=== PATIENT | female | born 1950 | race Caucasian/White ===

== ENCOUNTER → 2016-12-06 | Outpatient (CLI) | payer OTHER, MEDICARE | LOC: BMCIMAGING 10:21 | DX: Z12.31 Encounter for screening mammogram for malignant neoplasm of breast (principal); Z85.3 Personal history of malignant neoplasm of breast | CPT/HCPCS: G0202 ==

== ENCOUNTER 2017-03-21 18:08 | Emergency (ER) | payer OTHER, MEDICARE ==
--- NOTE | 2017-03-21 19:21 | EDPHY ---
H & P Time Seen by Provider: 03/21/17 18:31 HPI/ROS: This patient is accompanied by her friend who drove room by private vehicle for with ankle injury to the left ankle that occurred less than 2 hours prior to arrival. She explains that she was walking her dog looking across the street and stepped on a rock that was in the sidewalk causing her to inverted her left ankle. She heard a pop and immediate lateral pain to the lateral malleolus, but did not fall over. She is able to catch herself. Since that time she reports 3/10 ache at baseline that is worse with weight-bearing. She can still weight bear weight on the ankle but the pain increases to moderate intensity with weight-bearing. She notes associated swelling and mild ecchymosis to the lateral malleolus since the injury. ROS: Constitutional: She felt well prior to the injury Musculoskeletal: No other injuries. No foot pain. Neuro: No numbness or tingling the affected extremity Cardiovascular: No pallor or calf swelling to the affected extremity Integumentary: No skin rash or lacerations. 5 point ROS is otherwise negative. Past Medical/Surgical History: Prior left ankle fracture -lateral malleolus 4 years ago that took 11 months to heal but did eventually heal to full functional status per patient. Smoking Status: Former smoker Physical Exam: Physical Exam Vital signs are normal. General: No acute distress HEENT: Atraumatic Eyes: Pupils equal and react to light. Extraocular motions are intact. Lungs: No respiratory distress. Cardiac: Brisk capillary refill is intact throughout. Pulses are 2+ and symmetric in the affected extremity. Skin: No rash or pallor. No lacerations or abrasions. Extremities: Atraumatic normal except for left ankle Left ankle: Patient has moderate swelling tenderness and ecchymosis to the lateral malleolus. No medial tenderness, Achilles tenderness or foot tenderness or swelling. No calf swelling or tenderness. No lateral leg tenderness superior to the malleolus Neuro: Alert with no sensorimotor deficits in the affected ankle. Initial differential diagnosis: Sprain, traumatic hematoma, fracture Constitutional: Initial Vital Signs Temperature (C) 36.6 C 03/21/17 18:18 Heart Rate 94 03/21/17 18:18 Respiratory Rate 18 03/21/17 18:18 Blood Pressure 137/89 H 03/21/17 18:18 O2 Sat (%) 97 03/21/17 18:18 O2 Delivery Mode Room Air Allergies/Adverse Reactions: Penicillins Allergy (Intermediate, Verified 02/10/13 11:45) Rash tetracycline [Tetracycline] Allergy (Mild, Verified 02/10/13 11:45) Home Medications: Medication Instructions Recorded Aspirin [Aspirin 81mg] 81 mg PO DAILY 03/13/11 Levothyroxine [Levothroid, 88 mcg PO DAILY@1000 03/13/11 Synthroid] Levothyroxine [Synthroid 75 mcg 02/10/13 (RX)] Modafinil [Provigil 200 mg] 02/10/13 metFORMIN HCL [Glucophage 500 mg 02/10/13 (*)] MDM/Departure - MDM Diagnostics: Ankle x-ray: Three views-distal fibula-malleolus fracture nondisplaced by my interpretation Imaging Results: Imaging Impressions Ankle X-Ray 03/21/17 18:32 Impression: 1. Nondisplaced transverse fracture distal left fibula with adjacent moderate soft tissue swelling. Imaging: I viewed and interpreted images myself ED Course/Re-evaluation: Patient is placed in a walker boot by our tech. I counseled her regarding her fracture. The patient declined analgesics while here explaining that she would take her own Advil for her symptoms. Discussion: Uncomplicated lateral malleolus fracture warranting follow up with Orthopedics but does not appear to be a surgical fracture. - Depart Disposition: Home, Routine, Self-Care Clinical Impression: Fracture of distal fibula Qualifiers: Encounter type: initial encounter Fracture type: closed Fracture morphology: unspecified fracture morphology Laterality: left Qualified Code(s): S82.832A - Other fracture of upper and lower end of left fibula, initial encounter for closed fracture Condition: Good Instructions: Ankle Fracture (ED) Additional Instructions: Diagnosis: Ankle fracture Plan: Wear the splint when your up and about. You can remove it for bathing or at night. Crutches with touchdown weight-bearing as tolerated. Follow up with the precision agriculture specialist for further evaluation sometime the next 3-7 days Ibuprofen and/or Tylenol for pain if needed. Ice for swelling 20 minutes at a time 3 times a day for the next few days. Elevate the the ankle when able. Referrals: Louie Almendarez MD [Medical Doctor] - As per Instructions
[2017-03-21 20:08] VITALS: BP 134/95; PULSE 83; RESP 16; TEMP 97.7; O2SAT 96
== END 2017-03-21 20:07 | disposition home or self-care (01) ==
LOC: CED 18:08
DX: S82.832A Other fracture of upper and lower end of left fibula, initial encounter for closed fracture (principal); Z79.82 Long term (current) use of aspirin; Z79.84 Long term (current) use of oral hypoglycemic drugs; Z87.891 Personal history of nicotine dependence; W22.09XA Striking against other stationary object, initial encounter; Y92.480 Sidewalk as the place of occurrence of the external cause; Y99.8 Other external cause status; Y93.01 Activity, walking, marching and hiking
CPT/HCPCS: 73610; 99283; L4386

== ENCOUNTER → 2017-04-16 | Outpatient (CLI) | payer OTHER, MEDICARE | LOC: CIMAGING 10:42 | PROVIDERS: ATTEND Podiatrist Foot & Ankle Surgery | DX: S82.65XD Nondisplaced fracture of lateral malleolus of left fibula, subsequent encounter for closed fracture with routine healing (principal) | CPT/HCPCS: 73610-PO ==

== ENCOUNTER → 2017-04-27 | Outpatient (CLI) | payer OTHER, MEDICARE | LOC: CIMAGING 13:31 | PROVIDERS: ATTEND Podiatrist Foot & Ankle Surgery | DX: S89.392D Other physeal fracture of lower end of left fibula, subsequent encounter for fracture with routine healing (principal) | CPT/HCPCS: 73610-PO ==

== ENCOUNTER → 2017-05-25 | Outpatient (CLI) | payer OTHER, MEDICARE | LOC: CIMAGING 09:43 | PROVIDERS: ATTEND Podiatrist Foot & Ankle Surgery | DX: S82.831D Other fracture of upper and lower end of right fibula, subsequent encounter for closed fracture with routine healing (principal) | CPT/HCPCS: 73610-PO ==

== ENCOUNTER → 2017-06-15 | Outpatient (CLI) | payer OTHER, MEDICARE | LOC: CIMAGING 11:50 | PROVIDERS: ATTEND Podiatrist Foot & Ankle Surgery | DX: S82.64XD Nondisplaced fracture of lateral malleolus of right fibula, subsequent encounter for closed fracture with routine healing (principal) | CPT/HCPCS: 73610-PO ==

== ENCOUNTER → 2017-07-14 | Outpatient (CLI) | payer OTHER, MEDICARE | LOC: BMCIMAGING 11-26 16:06 | PROVIDERS: ATTEND Podiatrist Foot & Ankle Surgery | DX: S82.62XA Displaced fracture of lateral malleolus of left fibula, initial encounter for closed fracture (principal) | CPT/HCPCS: 73610-PO ==

== ENCOUNTER → 2017-08-23 | Outpatient (CLI) | payer OTHER, MEDICARE | LOC: BRMIMAGING 13:48 | PROVIDERS: ATTEND Internal Medicine | DX: E04.1 Nontoxic single thyroid nodule (principal) ==

== ENCOUNTER → 2017-12-08 | Outpatient (CLI) | payer OTHER, MEDICARE | LOC: BMCIMAGING 11:57 | PROVIDERS: ATTEND Internal Medicine | DX: Z12.31 Encounter for screening mammogram for malignant neoplasm of breast (principal); Z85.3 Personal history of malignant neoplasm of breast ==

== ENCOUNTER 2018-02-11 21:37 | Emergency (ER) | payer OTHER, MEDICARE ==
[2018-02-11] MEDS ORDERED: ONDANSETRON DISINTEGRATING 4 MG TAB PO ONE (22:16)
[2018-02-11] MEDS ORDERED: MECLIZINE HCL 25 MG TAB PO ONE (22:17)
--- NOTE | 2018-02-11 22:35 | EDPHY ---
H & P Time Seen by Provider: 02/11/18 21:41 HPI/ROS: This patient presents with vertigo. She explains that last night she turned her head to the left while lying down and abruptly had onset of room spinning. Her symptoms persisted today worse with movement particularly bending forward associated at times with nausea and vomiting. She has mild nausea currently and reports that the vertigo resolved at times but tends to recur with head movements. The symptoms are similar to an episode of ago she suffered 2 years ago. She had a normal head CT at that time. She underwent maneuvers- presumably Otis and had some improvement thereafter. She felt well prior to the onset of the vertigo. Her friend brought her in by private vehicle for further evaluation of the symptoms tonight. ROS: Constitutional: No recent fevers. She does complain of fatigue over the past couple days. HEENT: The patient reports mild left ear pressure intermittently today but no change in hearing and no tinnitus. She reports mild jaw pain bilaterally in the TMJ zone that she attributes to jaw clenching. She wears a bite guard at night. Pulmonary: No dyspnea or cough currently. Cardiovascular: No chest pain or heart palpitations. GI: No abdominal pain. No hematemesis. No diarrhea. Neuro: No headache. No focal numbness tingling or weakness. No visual changes. 7 point ROS is otherwise negative. Past Medical/Surgical History: Patient recently had a normal treadmill stress test in October and a normal echocardiogram. 1 prior history of benign positional vertigo Smoking Status: Former smoker Physical Exam: Physical exam: Vital signs are normal General: Patient is in no acute distress. HEENT: Is no external evidence of trauma on exam. Nose atraumatic. Ears: Clear bilaterally with no cerumen impaction, otitis media or other abnormalities appreciated. Oropharynx: No dental trauma or malocclusion. No intraoral lacerations. Eyes: Pupils are equal and reactive to light. Extraocular motions are intact. Neck: Nontender and supple Lungs: Clear to auscultation bilaterally Cardiac: Regular rate and rhythm no murmur gallop or rub. Abdomen: Soft nontender no organomegaly Neuro: GCS of 15. Cranial nerves II through XII intact. Cerebellar exam is normal as judged by normal rapid finger to nose bilaterally. No sensory or motor deficits are appreciated. The Ash[place]-Hallpike maneuver elicits fast twitch nystagmus toward the L. when performed on the left Initial differential diagnosis: Benign paroxysmal positional vertigo, anxiety, doubt central vertigo given lack of findings suggestive of that diagnoses., Meniere's disease, tumor Constitutional: Initial Vital Signs Temperature (C) 36.6 C 02/11/18 21:52 Heart Rate 87 02/11/18 21:52 Respiratory Rate 18 02/11/18 21:52 Blood Pressure 131/96 H 02/11/18 21:52 O2 Sat (%) 96 02/11/18 21:52 O2 Delivery Mode Room Air Allergies/Adverse Reactions: Penicillins Allergy (Intermediate, Verified 02/11/18 21:56) Rash tetracycline [Tetracycline] Allergy (Mild, Verified 02/11/18 21:56) Home Medications: Medication Instructions Recorded Aspirin [Aspirin 81mg] 81 mg PO DAILY 03/13/11 Levothyroxine [Synthroid 75 mcg 02/10/13 (RX)] Modafinil [Provigil 200 mg] 02/10/13 Meclizine HCl [Meclizine HCl 25 mg 25 mg PO BID PRN #20 tab 02/11/18 (RX,OTC)] Ondansetron Odt [Zofran Odt] 4 - 8 mg PO Q4PRN PRN #4 tab 02/11/18 MDM/Departure - MDM Medications Given: Discontinued Medications Meclizine HCl (Meclizine Hcl) 25 mg PO EDNOW ONE Stop: 02/11/18 22:18 Last Admin: 02/11/18 22:20 Dose: 25 mg Ondansetron HCl (Zofran Odt) 8 mg PO EDNOW ONE Stop: 02/11/18 22:17 Last Admin: 02/11/18 22:20 Dose: 8 mg ED Course/Re-evaluation: Zofran sublingual and meclizine p.o. After exam including [place]-Hallpike elicited more vertigo and nausea. After verbal consent to perform the Otis maneuver toward the left on this patient 3 times in a row with incremental improvement each time. She still has lingering nausea but her vertigo has resolved. Discussion: Patient presents with history and physical consistent with benign paroxysmal positional vertigo with findings that would suggest left posterior location. No clinical findings that would suggest a central vertigo, [employer] infection or other red flag findings. Will plan to send the patient home on Zofran, meclizine ENT follow-up for any ongoing symptoms - Depart Disposition: Home, Routine, Self-Care Clinical Impression: BPPV (benign paroxysmal positional vertigo) Qualifiers: Laterality: left Qualified Code(s): H81.12 - Benign paroxysmal vertigo, left ear Condition: Good Instructions: Benign Paroxysmal Positional Vertigo (ED) Additional Instructions: Diagnosis: Benign paroxysmal positional vertigo Plan: Make positional transitions slowly until your symptoms entirely resolved Zofran if needed for nausea vomiting Meclizine for vertigo if needed Follow up with ENT specialist-Dr. Mcelroy for any ongoing symptoms if needed. Return emergency department for any significant worsening despite treatment plan. Prescriptions: Meclizine HCl [Meclizine HCl 25 mg (RX,OTC)] 25 mg PO BID PRN #20 tab PRN Reason: vertigo Ondansetron Odt [Zofran Odt] 4 - 8 mg PO Q4PRN PRN #4 tab PRN Reason: Vomiting Referrals: Nitin Mcelroy MD [Medical Doctor] - As per Instructions
[2018-02-11] MEDS ORDERED: ONDANSETRON 4MG PREPACK#2 BTL TAKEHOME ONE (22:59)
[2018-02-11 23:24] VITALS: BP 126/79
== END 2018-02-11 23:20 | disposition home or self-care (01) ==
LOC: CED 21:37
DX: H81.12 Benign paroxysmal vertigo, left ear (principal); Z79.82 Long term (current) use of aspirin; Z87.891 Personal history of nicotine dependence

== ENCOUNTER → 2018-02-15 | Outpatient (CLI) | payer OTHER, MEDICARE | LOC: BHFA 13:00 | PROVIDERS: ATTEND Internal Medicine Cardiovascular Disease | DX: R06.09 Other forms of dyspnea (principal) ==

== ENCOUNTER → 2018-12-13 | Outpatient (CLI) | payer OTHER, MEDICARE | LOC: BMCIMAGING 13:23 | PROVIDERS: ATTEND Internal Medicine | DX: Z12.31 Encounter for screening mammogram for malignant neoplasm of breast (principal) | CPT/HCPCS: 82607-90; 84481-90 ==